=== PATIENT | male | born 1985 | race Two or more races ===

== ENCOUNTER 2022-09-26 17:51 | Emergency (ER) | payer MEDICAID ==
[~2022-09-26] VITALS: Ht 170.2 cm; Wt 100.0 kg
[2022-09-26 17:52] VITALS: BP 136/92
[2022-09-26] MEDS ORDERED: LIDOCAINE 1% 10 ML VIAL PERC ONE (19:45)
[2022-09-26] MEDS ORDERED: PERTUSS(ACELL),DIPH,TET VAC/PF 0.5 ML SYRINGE IM. ONE (19:45)
[2022-09-26] MEDS ORDERED: CEPH-558 PO (22:32)
[2022-09-26] MEDS ORDERED: BACITRACIN 0.9 GM PACKET OINTMENT TP ONE (23:15)
== END 2022-09-26 23:29 | disposition home or self-care (01) ==
LOC: EMS 17:56
DX: S01.412A Laceration without foreign body of left cheek and temporomandibular area, initial encounter (principal); Y08.09XA Assault by strike by other specified type of sport equipment, initial encounter; Y93.89 Activity, other specified; Y92.89 Other specified places as the place of occurrence of the external cause; Y99.8 Other external cause status
CPT/HCPCS: 99285; 70450; 73590; 70486; 90715; 90471; J3490